=== PATIENT | male | born 1935 | race Caucasian/White ===

== ENCOUNTER → 2016-12-31 | Outpatient (CLI) | payer MEDICARE ==
[~2016-12-31] MED LIST: Z.0.NO CURRENT MEDS
--- NOTE | 2016-12-31 19:12 | EKG ---
Date Performed: 12/31/2016 Time Performed: 07:43:40 PTAGE: 81 years EKG: Sinus rhythm WITH OCCASIONAL VENTRICULAR PREMATURE COMPLEXES POSSIBLE AGE UNDETERMINED INFERIOR INFARCTION BORDER LINE ECG PREVIOUS TRACING : 09/18/2000 14.14 Compared to the previous tracing, possible age undetermined inferior infarction is new DOCTOR: Terrance Santos Interpretating Date/Time 12/31/2016 19:11:32
== END ==
LOC: HCAV 07:29
PROVIDERS: ATTEND Internal Medicine
DX: Z01.810 Encounter for preprocedural cardiovascular examination (principal)
CPT/HCPCS: 93005